=== PATIENT | female | born 1985 | race African-American/Black ===

== ENCOUNTER 2017-08-10 21:19 | Emergency (ER) | payer BC, OTHER ==
[~2017-08-10] VITALS: Ht 162.6 cm; Wt 49.9 kg
--- NOTE | ~2017-08-10 | EKG ---
[place] [address] [facility] [place] [address] ELECTROCARDIOGRAM REPORT Name: JERMAINE HARRINGTON Room #: [facility]#: [id number] Admission: 08/10/17 Attend Phys: Discharge: 08/10/17 Date of : 87 Report #: [id number] THIS REPORT FOR: //name// [facility] ED Test Date: 2017-08-10 Test Time: 21:25:11 Pat Name: JERMAINE HARRINGTON Department: Room: Gender: F Home Health Attendant: ANGELO : 1985 Requested By: Anne Figueroa Order Number: [id number] MD: Jeremy Hilliard Measurements Intervals [place] Rate: 81 P: 53 AK: 143 QRS: 65 QRSD: 72 T: 58 QT: 360 QTc: 418 Interpretive Statements Sinus rhythm Normal tracing Compared to ECG 09/29/2011 21:41:51 No significant change was found Electronically Signed On 08-11-2017 8:26:45 CDT by Jeremy Hilliard [email or web address] <ELECTRONICALLY SIGNED> By: Jeremy Hilliard MD, [facility] 08/11/17 0826 2125 24 Jeremy Hilliard MD, FACC /EPI
[~2017-08-10 21:19] MED LIST: AUGMENTIN 875875 MG PO; AZELASTINE137 MCG/0. NS; FLONASE 0.05%50 MCG NASAL; NAPROSYN500 MG PO; POTASSIUM20 PO; SINGULAIR 10 MG10 M1; TYLENOL SINUS1 EAC3 PO; ZANTAC 150MG T150 MG PO
[2017-08-10] MEDS ORDERED: VENTOLIN HFA 1818 GM INH (21:35)
[2017-08-10 22:43] LABS: ABSOLUTE NEUTROPHILS 7.1 thou/uL (1.4-8.2); BASOPHILS 0.7 % (0.0-2.0); HEMATOCRIT 36.8 % (37.0-47.0); HEMOGLOBIN 12.2 gm/dL (12.0-15.0); LYMPHOCYTES 32.9 % (24.0-44.0); MCH 29.9 pg (26.0-34.0); MCHC 33.1 g/dL (28.0-37.0); MCV 90.2 fL (80.0-100.0); PLATELET COUNT 198 thou/uL (150-400); POLYS 56.4 % (36.0-66.0); RBC 4.08 mil/uL (4.20-5.00); RDW 12.7 % (10.5-14.5); WBC 12.6 thou/uL (4.0-11.0)
[2017-08-10 22:45] LABS: ANION GAP 8 mmol/L (7-16); BUN 8 mg/dL (7-18); CALCIUM 9.6 mg/dL (8.5-10.1); CHLORIDE 104 mmol/L (98-107); CO2 26 mmol/L (21-32); CREATININE 0.9 mg/dL (0.6-1.0); GLUCOSE 94 mg/dL (74-106); POTASSIUM 4.1 mmol/L (3.5-5.1); SODIUM 138 mmol/L (136-145)
[2017-08-10 22:54] LABS: TROPONIN-I < 0.04 ng/mL (<0.06)
[2017-08-10] MEDS ORDERED: NAPROSYN500 MG PO (23:41)
[2017-08-10] MEDS ORDERED: NORFLEX100 MG PO (23:41)
[2017-08-10 23:51] VITALS: BP 110/66
== END 2017-08-10 23:53 | disposition home or self-care (01) ==
LOC: ER 21:19
PROVIDERS: Physician Assistant
DX: R07.89 Other chest pain (principal); J45.909 Unspecified asthma, uncomplicated